=== PATIENT | male | born 1950 | race Caucasian/White ===

== ENCOUNTER 2022-06-27 19:06 | Inpatient (IN) | payer OTHER ==
[~2022-06-27] VITALS: Ht 180.3 cm; Wt 94.3 kg
--- NOTE | 2022-06-27 19:09 | NUR ---
[facility] TO BED #9
[2022-06-27 19:10] VITALS: BP 152/78
--- NOTE | 2022-06-27 19:18 | NUR ---
Patient being evaluated by physician at bedside.
--- NOTE | 2022-06-27 19:18 | NUR ---
PT PLACED ON BEDSIDE MAINTENANCE SPECIALIST. DR AHMADI AT BEDSIDE. PT PLACED ON EKG MACHINE
[2022-06-27] MEDS ORDERED: DILTIAZEM 25 MG/5 ML VIAL IVP ONE ×2 (19:25→19:55)
--- NOTE | 2022-06-27 19:39 | NUR ---
X-Ray at bedside.
[2022-06-27 19:40] LABS: BASOPHILS # (AUTO) 0.1 K/uL (0.00-0.22); BASOPHILS % (AUTO) 0.7 % (0.0-2.0); EOSINOPHILS % (AUTO) 0.1 % (0.0-4.0); HEMATOCRIT 40.3 % (36-52); HEMOGLOBIN 13.2 g/dL (12.0-18.0); LYMPHOCYTES # (AUTO) 2.3 K/uL (2.0-11.5); LYMPHOCYTES % (AUTO) 20.2 % (20.5-51.1); MEAN CORPUSCULAR HEMOGLOBIN 29 pg (27-31); MEAN CORPUSCULAR HGB CONC 33 g/dL (33-37); MEAN CORPUSCULAR VOLUME 89.4 fL (80-94); MONOCYTES # (AUTO) 0.6 K/uL (0.8-1.0); MONOCYTES % (AUTO) 5.7 % (1.7-9.3); NEUTROPHILS # (AUTO) 8.2 K/uL (1.8-7.7); NEUTROPHILS % (AUTO) 73.3 % (42.2-75.2); PLATELET COUNT (AUTO) 203 K/uL (140-450); RED BLOOD CELL COUNT(AUTO) 4.51 MIL/uL (4.20-6.10); RED CELL DISTRIBUTION WIDTH 14.4 % (11.6-13.7); WHITE BLOOD COUNT (AUTO) 11.2 K/uL (4.8-10.8)
--- NOTE | 2022-06-27 19:49 | NUR ---
Patient received on bed lying comfortably and awake. Alert and oriented x4. No acute distress. No complaints of pain or discomfort.
[2022-06-27 20:00] LABS: ASPARTATE AMINOTRANSFERASE 25 U/L (15-37); CARBON DIOXIDE 24.8 mmol/L (21-32); CHLORIDE 108 mmol/L (98-107); CREATININE 0.9 mg/dL (0.6-1.3); GLUCOSE 110 mg/dL (74-106); POTASSIUM 3.8 mmol/L (3.5-5.1); SODIUM SERUM 143 mmol/L (136-145); TOTAL BILIRUBIN 0.8 mg/dL (0.0-1.0); UREA NITROGEN, BLOOD 28 mg/dL (7-18)
[2022-06-27] MEDS ORDERED: METOPROLOL 5 MG/5 ML VIAL IVP ONE (20:40)
[2022-06-27] MEDS: NACL 0.9% 1,000 ML IV SCH (21:43)
--- NOTE | 2022-06-27 22:55 | NUR ---
HR SUSTAINED IN 150s/160s. DR. SALDIVAR NOTIFIED.
[2022-06-27] MEDS ORDERED: DILTIAZEM 60 MG TAB PO SCH (23:05)
--- NOTE | 2022-06-27 23:29 | NUR ---
RETURN CALL FROM DR. SALDIVAR. PT TO BE UPGRADED TO ICU
[2022-06-28] VITALS (24 sets, daily range): BP systolic 97–155; BP diastolic 51–91
[2022-06-28] MEDS ORDERED: DILTIAZEM 30 MG TAB ONE (00:08)
--- NOTE | 2022-06-28 00:23 | NUR ---
PT HR NOTED AT 71. CARDIZEM HELD AT THIS TIME.
[2022-06-28] MEDS ORDERED: BUDE1AER IH (00:45)
[2022-06-28] MEDS ORDERED: METF-1139 PO (00:45)
[2022-06-28] MEDS ORDERED: CETI10TA81 PO (00:45)
[2022-06-28] MEDS ORDERED: ATOR20TA40 PO (00:45)
[2022-06-28] MEDS ORDERED: TIOT18CA2 IH (00:45)
[2022-06-28] MEDS ORDERED: PANT40EC PO (00:45)
--- NOTE | 2022-06-28 00:49 | NUR ---
Patient will be admitted to care of Dr. José. Admited to ICU. Will go to room ICU 3. Belongings list completed. Report to JEANETTE Stephens.
[2022-06-28] MEDS ORDERED: DILTIAZEM 125 MG/25 ML VIAL IV ONE ×2 (05:25→23:53)
[2022-06-28] MEDS: NACL 0.9% 1,000 ML IV SCH ×2 (05:45→20:48)
[2022-06-28] MEDS: DILTIAZEM 125 MG in DEXTROSE 5% 100 ML IV PRN ×2 (05:54→16:02)
[2022-06-28 06:53] LABS: BASOPHILS % (AUTO) 0.4 % (0.0-2.0); EOSINOPHILS # (AUTO) 0.1 K/uL (0-0.4); EOSINOPHILS % (AUTO) 0.9 % (0.0-4.0); HEMATOCRIT 39.4 % (36-52); HEMOGLOBIN 12.8 g/dL (12.0-18.0); LYMPHOCYTES # (AUTO) 2.8 K/uL (2.0-11.5); LYMPHOCYTES % (AUTO) 24.9 % (20.5-51.1); MEAN CORPUSCULAR HEMOGLOBIN 30 pg (27-31); MEAN CORPUSCULAR HGB CONC 33 g/dL (33-37); MEAN CORPUSCULAR VOLUME 90.8 fL (80-94); MONOCYTES # (AUTO) 0.6 K/uL (0.8-1.0); MONOCYTES % (AUTO) 5.2 % (1.7-9.3); NEUTROPHILS # (AUTO) 7.6 K/uL (1.8-7.7); NEUTROPHILS % (AUTO) 68.6 % (42.2-75.2); PLATELET COUNT (AUTO) 190 K/uL (140-450); RED BLOOD CELL COUNT(AUTO) 4.34 MIL/uL (4.20-6.10); RED CELL DISTRIBUTION WIDTH 14.2 % (11.6-13.7); WHITE BLOOD COUNT (AUTO) 11.1 K/uL (4.8-10.8)
[2022-06-28 07:14] LABS: ANION GAP 13.8 (8-16); CHLORIDE 109 mmol/L (98-107); CREATININE 0.9 mg/dL (0.6-1.3); GLUCOSE 88 mg/dL (74-106); POTASSIUM 3.8 mmol/L (3.5-5.1); SODIUM SERUM 142 mmol/L (136-145); UREA NITROGEN, BLOOD 24 mg/dL (7-18)
--- NOTE | 2022-06-28 07:20 | NUR ---
RECEIVED REPORT FROM JEANETTE WALLS. PATIENT HR 162 ON MONITOR. PATIENT DENIES CP AND DENIES SYMPTOMS. BP, RR, SAO2 WNL. PATIENT IS A/O X4 AND FOLLOWS COMMANDS. ABLE TO MOVE ALL EXTREMITIES. ABLE TO COMMUNICATE VERBALLY AND MAKE ALL NEEDS KNOWN. PULSES BUE/BLE +2 AND IRREGULAR, CAP REFILL <3 SEC. S1 AND S2 AUSCULTATED. APPEARS NORMAL COLOR FOR ETHNICITY. LUNGS CLEAR ALL MCGOVERN, SATURATING 95% ON RA. BOWEL SOUNDS ACTIVE, ABD IS SOFT NONTENDER. LAST BM 06/27/22 PER PT. URINATING IN BS URINAL. 18G TO LEFT AC RUNNING CARDIZEM AT 10MG/HR AND NS AT 50ML/HR. DENIES CP, LIGHTHEADEDNESS AND SOB AT THIS TIME. WILL CONTINUE TO MONITOR.
--- NOTE | 2022-06-28 10:22 | NUR ---
PATIENT HAS BEEN SCREENED AND CATEGORIZED MODERATE NUTRITION RISK. PATIENT WILL BE SEEN WITHIN 3-5 DAYS OF ADMISSION. REVIEWED BY CELE BERMUDEZ RD
[2022-06-28] MEDS ORDERED: ACETAMINOPHEN 325 MG TAB PO PRN (10:25)
[2022-06-28] MEDS ORDERED: ONDANSETRON 4 MG/2 ML VIAL IVP PRN (10:25)
[2022-06-28] MEDS ORDERED: MAG SULF 2000 MG/WATER PREMIX 50 ML IV PRN (10:25)
[2022-06-28] MEDS ORDERED: POTASSIUM CHLORIDE 10 MEQ TABER PO PRN (10:25)
[2022-06-28] MEDS ORDERED: HYDROcodone/APAP 7.5/325 MG 1 TAB PO PRN (10:25)
--- NOTE | 2022-06-28 10:28 | NUR ---
NOTIFIED THAT PATIENT STATES HE HAS SOME ANXIETY, FEELS SLIGHT SOB AND INTERMITTENT CP. DR. SALDIVAR ORDERED STAT EKG. DR. HIGGINBOTHAM NOTIFIED OF SYMPTOMS. AWAITING RESPONSE FROM . PATIENT AWAKE A/O X4, HR 129, RR 23, 93% RA, 107/78. CARDIZEM 15MG/HR RUNNING.
[2022-06-28] MEDS ORDERED: DEXTROSE 50% 50 ML SYR IVP PRN (10:30)
--- NOTE | 2022-06-28 10:38 | NUR ---
DC PLANNING ADMITTED A 71 YEAR OLD MALE PATIENT 06/27/22 FOR SVT WITH HR IN THE 170'S -180'S,DIAPHORETIC AND HAD MILD CHEST PRESSURE .HX OF ASTHMA, DM ,GI REFLUX.CXR CONSISTENT WITH PULM VASCULAR CONGESTION AND MILD INTERSTITIAL EDEMA.12 LEAD EKG -SVT. ON CARDIZEM DRIP.DC PLAN- WEAN OFF CARDIZEM DRIP AND DC HOME WHEN PATIENT RESPONDS TO TX.CM TO FOLLOW. Addendum: 06/30/22 at 1701 by EULA PABLO CM DC PLANNING. STILL TACHYCARDIC. ON CARDIZEM DRIP.STARTED ON DIGOXIN AND ELIQUIS.CARDIOLOGY FOLLOWING.PLAN TO WEAN OFF CARDIZEM DRIP PER CARDIOLOGY.CM TO FOLLOW. Addendum: 07/01/22 at 1340 by EULA PABLO CM DC PLANNING NSR ON THE MONITOR .HR IN THE 80S.OFF CARDIZEM DRIP. FOR TRANSFER TO TELEMETRY. TENTATIVE DC PLAN TO HOME WHEN PATIENT RESPONDS TO TX.CM TO FOLLOW
--- NOTE | 2022-06-28 10:40 | NUR ---
HERE AT BS TO SEE PT. NO NEW ORDERS GIVEN AT THIS TIME.
[2022-06-28] MEDS: BLOOD GLUCOSE MONITORING 1 DEV DEV FS SCH ×3 (10:44→21:05)
[2022-06-28] MEDS: INSULIN LISPRO SLIDING SCALE 100 UNITS/ML VIAL SUBQ PRN (10:44)
--- NOTE | 2022-06-28 10:48 | NUR ---
PER DR.PALIWAL HAYWARD IS ON THIS CASE. STATED THAT HE CONTACTED DR. BOX TO NOTIFY HIM OF THE PATIENT'S STATUS. AWAITING RESPONSE FROM .
--- NOTE | 2022-06-28 11:40 | NUR ---
CONTACTED CONCERNING PATIENT. AWAITING RESPONSE. PATIENT CURRENTLY hr 138, RR 24, SAO2 96% RA, BP 94/57. PATIENT IS A/O X4 ABLE TO MAKE NEEDS KNOWN. STATES HE HAS INTERMITTENT SLIGHT CP AND INTERMITTENT FEELINGS OF SOB, BUT IS STILL SATURATING WELL. PATIENT RESTING IN BED WATCHING TV.
--- NOTE | 2022-06-28 11:45 | NUR ---
DR. BOX AWARE OF PATIENT CONDITION.
[2022-06-28] MEDS ORDERED: IPRATROPIUM 0.02% 0.5 MG/2.5 ML NEBU INH SCH (13:00)
[2022-06-28 14:17] LABS: BASOPHILS # (AUTO) 0.1 K/uL (0.00-0.22); BASOPHILS % (AUTO) 0.6 % (0.0-2.0); EOSINOPHILS # (AUTO) 0.1 K/uL (0-0.4); EOSINOPHILS % (AUTO) 1.5 % (0.0-4.0); HEMATOCRIT 38.6 % (36-52); HEMOGLOBIN 12.9 g/dL (12.0-18.0); LYMPHOCYTES % (AUTO) 21.9 % (20.5-51.1); MEAN CORPUSCULAR HEMOGLOBIN 30 pg (27-31); MEAN CORPUSCULAR HGB CONC 34 g/dL (33-37); MEAN CORPUSCULAR VOLUME 89.4 fL (80-94); MONOCYTES # (AUTO) 0.6 K/uL (0.8-1.0); MONOCYTES % (AUTO) 6.1 % (1.7-9.3); NEUTROPHILS # (AUTO) 6.4 K/uL (1.8-7.7); NEUTROPHILS % (AUTO) 69.9 % (42.2-75.2); PLATELET COUNT (AUTO) 191 K/uL (140-450); RED BLOOD CELL COUNT(AUTO) 4.32 MIL/uL (4.20-6.10); RED CELL DISTRIBUTION WIDTH 14.6 % (11.6-13.7); WHITE BLOOD COUNT (AUTO) 9.1 K/uL (4.8-10.8)
[2022-06-28 14:45] LABS: PROTHROMBIN TIME 12.1 secs (10.8-13.4)
[2022-06-28 14:56] LABS: CARBON DIOXIDE 26.9 mmol/L (21-32); CHLORIDE 108 mmol/L (98-107); GLUCOSE 114 mg/dL (74-106); POTASSIUM 3.9 mmol/L (3.5-5.1); SODIUM SERUM 142 mmol/L (136-145); UREA NITROGEN, BLOOD 21 mg/dL (7-18)
[2022-06-28 15:09] LABS: APPEARANCE,URINE CLEAR (CLEAR); BILIRUBIN,URINE NEGATIVE (NEGATIVE); BLOOD, URINE NEGATIVE (NEGATIVE); COLOR,URINE YELLOW (YELLOW); LEUKOCYTE ESTERASE ,URINE NEGATIVE (NEGATIVE); NITRITE, URINE NEGATIVE (NEGATIVE); UGLUCOSE 1+ (NEGATIVE)
--- NOTE | 2022-06-28 15:12 | NUR ---
SLIGHT EXPIRATORY WHEEZE AUSCULTATED TO BILATERAL UPPER LOBES. AURROA VARGAS NOTIFIED. PATIENT STATES THAT HE CONTINUES TO FEEL SOB AT TIMES ESPECIALLY AFTER ECHO AND URINATING. PATIENT DESATURATED TO 87-88% RA. PLACED ON 2L NC AND NOW SATURATING AT 94%. DR. SALDIVAR NOTIFIED. AWAITING RESPONSE. HR 118, RR 26, 132/74. PATIENT RESTING IN BED WITH EYES CLOSED. DENIES PAIN AT THIS TIME. Addendum: 06/28/22 at 1719 by TRISTAN NGO RN PATIENT DID NOT RECEIVE ECHO, PATIENT RECEIVED US OF BLE.
[2022-06-28 15:13] LABS: CHOL/HDL RATIO 2.3 (1-4.5); FREE T4 (FREE THYROXINE) 1.15 ng/dL (0.76-1.46); MAGNESIUM 1.7 mg/dL (1.8-2.4); PHOSPHORUS 2.9 mg/dL (2.5-4.9); THYROID STIMULATING HORMONE 0.6 uIU/mL (0.34-3.74)
[2022-06-28 15:31] LABS: BARBITURATE, URINE NEGATIVE ng/ml (NEG <=200); BENZODIAZEPINE, URINE NEGATIVE ng/mL (NEG <=200); CANNABINOID, URINE NEGATIVE ng/mL (NEG <=50); COCAINE, URINE NEGATIVE ng/mL (NEG <=300); OPIATE, URINE NEGATIVE ng/mL (NEG <=2000); PHENCYCLIDINE SCREEN,URINE NEGATIVE ng/mL (NEG <=25)
[2022-06-28] MEDS ORDERED: LORazepam 1 MG TAB PO PRN (16:50)
--- NOTE | 2022-06-28 17:15 | NUR ---
NICOLAS ANESTHETIST STATED THAT PATIENT'S ECHOCARDIOGRAM WOULD NEED TO BE COMPLETED IN THE MORNING DT THE MACHINE BEING NON-OPERATIONAL. ANESTHETIST SPOKE TO PATIENT AND MADE HIM AWARE. PATIENT VERBALIZED UNDERSTANDING.
--- NOTE | 2022-06-28 17:24 | NUR ---
MESSAGED CONCERNING PATIENT AND PT WANTING TO SPEAK WITH HIM. AWAITING RESPONSE.
--- NOTE | 2022-06-28 17:46 | NUR ---
HERE TO SEE PATIENT. NO VERBAL ORDERS GIVEN AT THIS TIME.
[2022-06-28] MEDS ORDERED: DIGOXIN 0.25 MG/ML AMP IV ONE ×2 (18:10)
[2022-06-28] MEDS ORDERED: DIGOXIN 0.25 MG/ML AMP IV SCH ×2 (18:15)
[2022-06-28] MEDS: FUROSEMIDE 20 MG/2 ML VIAL IVP SCH (18:48)
--- NOTE | 2022-06-28 19:20 | NUR ---
BEDSIDE REPORT GIVEN TO TITI REID. PATIENT STABLE AT THIS TIME.
[2022-06-28] MEDS: APIXABAN 2.5 MG TAB PO SCH (20:56)
[2022-06-28] MEDS: ATORVASTATIN 20 MG TAB PO SCH (20:58)
[2022-06-28] MEDS: DOCUSATE SODIUM 100 MG GELCAP PO SCH (20:58)
[2022-06-29] VITALS (22 sets, daily range): BP systolic 90–121; BP diastolic 43–95
[2022-06-29] MEDS: DILTIAZEM 125 MG in DEXTROSE 5% 100 ML IV PRN ×2 (00:41→21:04)
[2022-06-29] MEDS ORDERED: DIGOXIN 0.25 MG/ML AMP IV SCH ×2 (06:00)
[2022-06-29 06:13] LABS: BASOPHILS % (AUTO) 0.5 % (0.0-2.0); EOSINOPHILS # (AUTO) 0.1 K/uL (0-0.4); EOSINOPHILS % (AUTO) 1.5 % (0.0-4.0); HEMATOCRIT 40.2 % (36-52); HEMOGLOBIN 13.3 g/dL (12.0-18.0); LYMPHOCYTES # (AUTO) 1.9 K/uL (2.0-11.5); LYMPHOCYTES % (AUTO) 22.7 % (20.5-51.1); MEAN CORPUSCULAR HEMOGLOBIN 30 pg (27-31); MEAN CORPUSCULAR HGB CONC 33 g/dL (33-37); MEAN CORPUSCULAR VOLUME 89.6 fL (80-94); MONOCYTES # (AUTO) 0.5 K/uL (0.8-1.0); MONOCYTES % (AUTO) 6.1 % (1.7-9.3); NEUTROPHILS # (AUTO) 5.8 K/uL (1.8-7.7); NEUTROPHILS % (AUTO) 69.2 % (42.2-75.2); PLATELET COUNT (AUTO) 191 K/uL (140-450); RED BLOOD CELL COUNT(AUTO) 4.48 MIL/uL (4.20-6.10); RED CELL DISTRIBUTION WIDTH 14.1 % (11.6-13.7); WHITE BLOOD COUNT (AUTO) 8.4 K/uL (4.8-10.8)
[2022-06-29 06:30] LABS: ANION GAP 11.5 (8-16); CARBON DIOXIDE 26.3 mmol/L (21-32); CHLORIDE 107 mmol/L (98-107); CREATININE 0.8 mg/dL (0.6-1.3); GLUCOSE 115 mg/dL (74-106); POTASSIUM 3.8 mmol/L (3.5-5.1); SODIUM SERUM 141 mmol/L (136-145); UREA NITROGEN, BLOOD 17 mg/dL (7-18)
[2022-06-29 06:39] LABS: MAGNESIUM 2.1 mg/dL (1.8-2.4); PHOSPHORUS 3.3 mg/dL (2.5-4.9)
[2022-06-29] MEDS: BLOOD GLUCOSE MONITORING 1 DEV DEV FS SCH ×4 (07:30→20:26)
--- NOTE | 2022-06-29 08:09 | NUR ---
ECHO AT BEDSIDE AT THIS TIME
[2022-06-29] MEDS ORDERED: NON-FORMULARY ITEM (Budesonide/Formoterol Fumarate* (Symbicort 160-4.5 Mcg Inhaler*) 2 PUF IH SCH (09:00)
[2022-06-29] MEDS: DOCUSATE SODIUM 100 MG GELCAP PO SCH ×2 (09:00→20:22)
[2022-06-29] MEDS ORDERED: TIOTROPIUM BROMIDE 1.25 MCG IH SCH (09:00)
[2022-06-29] MEDS ORDERED: PANTOPRAZOLE 40 MG INJ VIAL IVP SCH (09:00)
[2022-06-29] MEDS ORDERED: NON-FORMULARY ITEM (Cetirizine HCl (Zyrtec) 1 TAB) PO SCH (09:00)
[2022-06-29] MEDS ORDERED: NON-FORMULARY ITEM (Metformin HCl* (Glucophage Xr*) 500 MG) PO SCH (09:00)
[2022-06-29] MEDS: FUROSEMIDE 20 MG/2 ML VIAL IVP SCH ×2 (09:31→19:20)
[2022-06-29] MEDS: PANTOPRAZOLE 40 MG TABEC PO SCH (09:32)
[2022-06-29] MEDS: APIXABAN 2.5 MG TAB PO SCH ×2 (09:40→20:21)
--- NOTE | 2022-06-29 14:44 | NUR ---
DR SHAW HERE AT THIS TIME MAKING ROUNDS
[2022-06-29] MEDS: ATORVASTATIN 20 MG TAB PO SCH (20:21)
[2022-06-29] MEDS: INSULIN LISPRO SLIDING SCALE 100 UNITS/ML VIAL SUBQ PRN (20:27)
[2022-06-29] MEDS ORDERED: DILTIAZEM 125 MG/25 ML VIAL IV ONE (20:46)
[2022-06-30] VITALS (23 sets, daily range): BP systolic 82–129; BP diastolic 50–92
[2022-06-30 05:45] LABS: BASOPHILS % (AUTO) 0.3 % (0.0-2.0); EOSINOPHILS # (AUTO) 0.2 K/uL (0-0.4); EOSINOPHILS % (AUTO) 2.4 % (0.0-4.0); HEMATOCRIT 44.2 % (36-52); HEMOGLOBIN 14.6 g/dL (12.0-18.0); LYMPHOCYTES # (AUTO) 1.6 K/uL (2.0-11.5); LYMPHOCYTES % (AUTO) 20.5 % (20.5-51.1); MEAN CORPUSCULAR HEMOGLOBIN 30 pg (27-31); MEAN CORPUSCULAR HGB CONC 33 g/dL (33-37); MEAN CORPUSCULAR VOLUME 89.5 fL (80-94); MONOCYTES # (AUTO) 0.4 K/uL (0.8-1.0); MONOCYTES % (AUTO) 5.6 % (1.7-9.3); NEUTROPHILS # (AUTO) 5.6 K/uL (1.8-7.7); NEUTROPHILS % (AUTO) 71.2 % (42.2-75.2); PLATELET COUNT (AUTO) 215 K/uL (140-450); RED BLOOD CELL COUNT(AUTO) 4.94 MIL/uL (4.20-6.10); RED CELL DISTRIBUTION WIDTH 14.4 % (11.6-13.7); WHITE BLOOD COUNT (AUTO) 7.8 K/uL (4.8-10.8)
[2022-06-30 06:33] LABS: ANION GAP 11.7 (8-16); CHLORIDE 105 mmol/L (98-107); CREATININE 0.8 mg/dL (0.6-1.3); GLUCOSE 122 mg/dL (74-106); POTASSIUM 3.7 mmol/L (3.5-5.1); SODIUM SERUM 139 mmol/L (136-145); UREA NITROGEN, BLOOD 18 mg/dL (7-18)
[2022-06-30 06:40] LABS: MAGNESIUM 2.1 mg/dL (1.8-2.4)
[2022-06-30] MEDS: BLOOD GLUCOSE MONITORING 1 DEV DEV FS SCH ×4 (06:55→20:47)
--- NOTE | 2022-06-30 08:01 | NUR ---
DR STRANGE AT BEDSIDE AT THIS TIME
[2022-06-30] MEDS: PANTOPRAZOLE 40 MG TABEC PO SCH (08:12)
[2022-06-30] MEDS: FUROSEMIDE 20 MG/2 ML VIAL IVP SCH ×2 (08:14→17:39)
[2022-06-30] MEDS: APIXABAN 2.5 MG TAB PO SCH ×2 (08:15→20:43)
[2022-06-30] MEDS: DOCUSATE SODIUM 100 MG GELCAP PO SCH ×2 (08:15→20:37)
[2022-06-30] MEDS: DILTIAZEM 125 MG in DEXTROSE 5% 100 ML IV PRN (12:27)
--- NOTE | 2022-06-30 15:18 | NUR ---
06/30/22 RD INITIAL ASSESSMENT COMPLETED PLEASE REFER TO NUTRITION ASSESSMENT UNDER CARE ACTIVITY FOR ESTIMATED NUTRITIONAL NEEDS. 1. RECOMMEND ADDING CARDIAC TO [id number] DIET TOLERATED 2. MONITOR PO INTAKE AND NUTRITION RELATED LAB VALUES 3. RD TO FOLLOW-UP 3-5 DAYS, MODERATE RISK REVIEWED BY CELE BERMUDEZ RD
[2022-06-30] MEDS: DILTIAZEM 30 MG TAB PO SCH ×2 (17:38→21:00)
--- NOTE | 2022-06-30 18:33 | NUR ---
PER DR BOX, CONTINUE CARDIZEM DRIP AND TITRATE DOWN FOR HR LESS THAN 100BPM. HR 121 AT THIS TIME
[2022-06-30] MEDS ORDERED: DILTIAZEM 125 MG/25 ML VIAL IV ONE (19:51)
[2022-06-30] MEDS: INSULIN LISPRO SLIDING SCALE 100 UNITS/ML VIAL SUBQ PRN (20:48)
[2022-06-30] MEDS: ATORVASTATIN 20 MG TAB PO SCH (21:00)
--- NOTE | 2022-06-30 22:27 | NUR ---
AT 1999, PT HAS NO C/O PAIN. rEMAINS ON AFIB UNCONTROLLED
--- NOTE | 2022-06-30 23:13 | NUR ---
[id number] the cardizem was not given bec last dose was given [id number] and Bp was low
[2022-07-01] VITALS (16 sets, daily range): BP systolic 96–121; BP diastolic 41–94
[2022-07-01] MEDS: DILTIAZEM 30 MG TAB PO SCH ×3 (04:49→20:40)
[2022-07-01 05:57] LABS: BASOPHILS % (AUTO) 0.4 % (0.0-2.0); EOSINOPHILS # (AUTO) 0.2 K/uL (0-0.4); EOSINOPHILS % (AUTO) 1.8 % (0.0-4.0); HEMATOCRIT 45.6 % (36-52); HEMOGLOBIN 15.1 g/dL (12.0-18.0); LYMPHOCYTES # (AUTO) 1.6 K/uL (2.0-11.5); LYMPHOCYTES % (AUTO) 17.2 % (20.5-51.1); MEAN CORPUSCULAR HEMOGLOBIN 30 pg (27-31); MEAN CORPUSCULAR HGB CONC 33 g/dL (33-37); MEAN CORPUSCULAR VOLUME 89.7 fL (80-94); MONOCYTES # (AUTO) 0.5 K/uL (0.8-1.0); MONOCYTES % (AUTO) 5.7 % (1.7-9.3); NEUTROPHILS # (AUTO) 6.9 K/uL (1.8-7.7); NEUTROPHILS % (AUTO) 74.9 % (42.2-75.2); PLATELET COUNT (AUTO) 215 K/uL (140-450); RED BLOOD CELL COUNT(AUTO) 5.08 MIL/uL (4.20-6.10); RED CELL DISTRIBUTION WIDTH 14.2 % (11.6-13.7); WHITE BLOOD COUNT (AUTO) 9.2 K/uL (4.8-10.8)
[2022-07-01 05:58] LABS: CARBON DIOXIDE 29.5 mmol/L (21-32); CHLORIDE 104 mmol/L (98-107); CREATININE 0.9 mg/dL (0.6-1.3); GLUCOSE 127 mg/dL (74-106); POTASSIUM 3.5 mmol/L (3.5-5.1); SODIUM SERUM 139 mmol/L (136-145); UREA NITROGEN, BLOOD 20 mg/dL (7-18)
[2022-07-01 06:03] LABS: MAGNESIUM 2.1 mg/dL (1.8-2.4); PHOSPHORUS 3.5 mg/dL (2.5-4.9)
[2022-07-01] MEDS: BLOOD GLUCOSE MONITORING 1 DEV DEV FS SCH ×4 (06:36→20:35)
--- NOTE | 2022-07-01 07:30 | NUR ---
RECEIVED REPORT FROM JESUS ALAS. IS AWAKE AND ALERT SKIN DRY AND WARM TO TOUCH, IV FLUID HAS HEP LOCK ON LEFT AC O 2 2L NC , MOVE ALL EXTREMITIES . SKIN INTACT,
[2022-07-01] MEDS: DOCUSATE SODIUM 100 MG GELCAP PO SCH ×2 (09:00→20:40)
[2022-07-01] MEDS: APIXABAN 2.5 MG TAB PO SCH ×2 (09:00→20:39)
[2022-07-01] MEDS: PANTOPRAZOLE 40 MG TABEC PO SCH (09:00)
[2022-07-01] MEDS: FUROSEMIDE 20 MG/2 ML VIAL IVP SCH ×2 (09:00→16:45)
--- NOTE | 2022-07-01 09:21 | NUR ---
PATIENT REFUSE TO TAKE PO COLACE.
--- NOTE | 2022-07-01 11:45 | NUR ---
BLOOD GLUCOSE 107. NO INSULIN GIVEN.
--- NOTE | 2022-07-01 13:20 | NUR ---
SEEN BY DR. SHAW AT BED SIDE. PT CONDITION STABLE , VITAL SIGN WITH IN NORMAL LIMIT. ORDERED DOWNGRADE TO TELE.
--- NOTE | 2022-07-01 16:00 | NUR ---
SEEN BY AT BED SIDE ORDER RECEIVED.
--- NOTE | 2022-07-01 16:45 | NUR ---
BLOOD GLUCOSE 84 PT. IA AWAKE AND ALERT.
--- NOTE | 2022-07-01 17:09 | NUR ---
DR. BOX CALL ED CHANGE LASIX TO 20MG PO DAILY.
--- NOTE | 2022-07-01 19:30 | NUR ---
RECEIVED REPORT FROM ICU NURSE FOR CONTINUITY OF CARE. PATIENT IN STABLE CONDITION, PATIENT DENIES PAIN UPON ASSESSMENT, DENIES SOB, IS AMBULATORY, USES THE RESTROOM. ALL SAFETY MEASURES IN PLACE.
[2022-07-01] MEDS: ATORVASTATIN 20 MG TAB PO SCH (20:40)
--- NOTE | 2022-07-01 20:41 | NUR ---
SCHEDULED MEDICATIONS GIVEN ORDERED. PATIENT'S BLOOD SUGAR 128 MG/DL, NO INSULIN COVERAGE NEEDED. PATIENT DENIES PAIN. CALL LIGHT WITHIN REACH.
[2022-07-02] VITALS: BP 110/76
--- NOTE | 2022-07-02 00:10 | NUR ---
VITALS TAKEN T 97.8, P 80, BP 110/76, RESP 18 AND O2 SATS 94% ON ROOM AIR. ALL SAFETY MEASURES IN PLACE.
[2022-07-02 04:00] VITALS: BP 109/77
[2022-07-02] MEDS: DILTIAZEM 30 MG TAB PO SCH (04:41)
--- NOTE | 2022-07-02 04:41 | NUR ---
SCHEDULED MEDICATION GIVEN ORDERED. PATIENT DENIES PAIN, NO SOB NOTED, CALL LIGHT WITHIN REACH.
[2022-07-02 06:31] LABS: BASOPHILS % (AUTO) 0.3 % (0.0-2.0); EOSINOPHILS # (AUTO) 0.2 K/uL (0-0.4); EOSINOPHILS % (AUTO) 2.4 % (0.0-4.0); HEMOGLOBIN 15.1 g/dL (12.0-18.0); LYMPHOCYTES # (AUTO) 1.6 K/uL (2.0-11.5); LYMPHOCYTES % (AUTO) 18.9 % (20.5-51.1); MEAN CORPUSCULAR HEMOGLOBIN 30 pg (27-31); MEAN CORPUSCULAR HGB CONC 34 g/dL (33-37); MEAN CORPUSCULAR VOLUME 89.7 fL (80-94); MONOCYTES # (AUTO) 0.5 K/uL (0.8-1.0); MONOCYTES % (AUTO) 5.6 % (1.7-9.3); NEUTROPHILS # (AUTO) 6.1 K/uL (1.8-7.7); NEUTROPHILS % (AUTO) 72.8 % (42.2-75.2); PLATELET COUNT (AUTO) 227 K/uL (140-450); RED BLOOD CELL COUNT(AUTO) 5.01 MIL/uL (4.20-6.10); RED CELL DISTRIBUTION WIDTH 14.2 % (11.6-13.7); WHITE BLOOD COUNT (AUTO) 8.4 K/uL (4.8-10.8)
[2022-07-02] MEDS: BLOOD GLUCOSE MONITORING 1 DEV DEV FS SCH ×2 (06:37→12:10)
[2022-07-02 06:39] LABS: MAGNESIUM 2.1 mg/dL (1.8-2.4)
[2022-07-02 06:59] LABS: ANION GAP 10.8 (8-16); CHLORIDE 102 mmol/L (98-107); CREATININE 0.8 mg/dL (0.6-1.3); GLUCOSE 114 mg/dL (74-106); POTASSIUM 3.8 mmol/L (3.5-5.1); SODIUM SERUM 138 mmol/L (136-145); UREA NITROGEN, BLOOD 20 mg/dL (7-18)
--- NOTE | 2022-07-02 07:19 | NUR ---
PATIENT IN STABLE CONDITION. ENDORSED TO DAY NURSE FOR CONTINUITY OF CARE.
--- NOTE | 2022-07-02 07:20 | NUR ---
RECEIVED REPORT FROM NIGHTSHIFT NURSE. PT IS AWAKE IN BED, AOX4, NO SIGNS OF DISTRESS, ON RM AIR. IV TO LEFT AC, 18G, SALINE LOCK, CLEAN AND INTACT. PT REPORTS NO PAIN OR DISCOMFORT. NO FURTHER NEEDS ARE TO BE MET AT THIS TIME. WILL CONTINUE WITH CARE. BED IN LOWEST POSITION, 2 SIDE RAILS UP, CALL LIGHT PLACED WITHIN REACH, REORIENTED PT TO CALL LIGHT.
[2022-07-02 08:00] VITALS: BP 97/66
[2022-07-02] MEDS ORDERED: FUROSEMIDE 20 MG TAB PO SCH (09:00)
[2022-07-02] MEDS: DOCUSATE SODIUM 100 MG GELCAP PO SCH (09:45)
[2022-07-02] MEDS: PANTOPRAZOLE 40 MG TABEC PO SCH (09:45)
[2022-07-02] MEDS: APIXABAN 2.5 MG TAB PO SCH (09:46)
[2022-07-02 12:00] VITALS: BP 114/74
[2022-07-02] MEDS ORDERED: APIX5TAB PO ×2 (15:03→16:06)
[2022-07-02] MEDS ORDERED: DILT-135 PO ×2 (15:03→16:06)
[2022-07-02 15:40] VITALS: BP 114/74
--- NOTE | 2022-07-02 18:13 | NUR ---
PT INFORMED OF DISCHARGE. DISCHARGE INSTRUCTIONS PROVIDED. PT VERBALIZE UNDERSTANDING. IV REMOVED, TELE BOX REMOVED, PT BELONGINGS RETURNED. PT STABLE, WITH FAMILY AT BEDSIDE (MOM AND SON). WALKED OUT OF HOSPITAL WITH MOM AND SON. NO FURTHER NEEDS ARE TO BE MET AT THIS TIME.
--- NOTE | 2022-07-04 12:24 | NUR ---
CALLED DR WOOD'S OFFICE [phone] LOCATED AT [address] [place] [address]. SPOKE WITH THANH WHO INFORMED ME WITH PATIENT NEW INSURANCE HE DOESN'T QUALIFY FOR MEDICAL VISITS ONLY HOSPITAL. SO SHE WAS UNABLE TO ASSIST ME IN MAKING A HOSPITAL FOLLOW UP APPOINTMENT FOR PATIENT.
== END 2022-07-02 19:02 | disposition home or self-care (01) | DRG 291 ==
LOC: MED 19:06 → MTU 21:23 → MMU 23:37 → MIC 06-28 00:23 → MTU 07-01 18:35
DX: I11.0 Hypertensive heart disease with heart failure (principal); I50.43 Acute on chronic combined systolic (congestive) and diastolic (congestive) heart failure; J96.01 Acute respiratory failure with hypoxia; I48.20 Chronic atrial fibrillation, unspecified; I47.1 Supraventricular tachycardia; E78.5 Hyperlipidemia, unspecified; E78.00 Pure hypercholesterolemia, unspecified; J30.9 Allergic rhinitis, unspecified; K21.9 Gastro-esophageal reflux disease without esophagitis; E86.0 Dehydration; J40 Bronchitis, not specified as acute or chronic; E11.9 Type 2 diabetes mellitus without complications; Z20.822 Contact with and (suspected) exposure to COVID-19; Z88.0 Allergy status to penicillin; Z79.01 Long term (current) use of anticoagulants
CPT/HCPCS: 36415; 71045; 80048; 80053; 80305; 81003; 82140; 82150; 82948; 83036; 83605; 83690; 83735; 83880; 84100; 84439; 84443; 84484; 85025; 85610; 85730; 87040; 87081; 87086; 93005; 93925; 93970; 96374; 96375; 96376; 99285; J1160; J1644; J1815; J1940; J3475; J3490; J7060; Q0092